=== PATIENT | female | born 1945 | race Caucasian/White ===

== ENCOUNTER 2019-08-15 21:55 | Emergency (ER) | payer MEDICARE ==
[~2019-08-15] VITALS: Ht 170.2 cm; Wt 108.9 kg
[2019-08-15] MEDS ORDERED: TETRACAINE HCL 0.5% OPTH SOLN 4 ML BTL OP ONE (23:15)
[2019-08-15] MEDS ORDERED: FLUORESCEIN SOD(OPTH) 1 MG STRP OP ONE (23:15)
== END 2019-08-16 00:14 | disposition home or self-care (01) ==
LOC: ER 21:55
DX: H10.12 Acute atopic conjunctivitis, left eye (principal); I10 Essential (primary) hypertension; E11.9 Type 2 diabetes mellitus without complications; K21.9 Gastro-esophageal reflux disease without esophagitis
CPT/HCPCS: 99282